=== PATIENT | female | born 1965 | race Caucasian/White ===

== ENCOUNTER → 2022-09-15 07:56 | Outpatient (CLI) | payer OTHER, SELFPAY ==
--- NOTE | ~2022-09-15 | MR_ITS ---
MRI of the brain Clinical History: Demyelinating disease Technique: Axial and sagittal T1-weighted images were acquired. These were followed by axial T2-weigh irvin, diffusion weighted, gradient, and FLAIR images. Sagittal FLAIR images were also performed. Follo wing intravenous administration of 15 cc MultiHance gadolinium, T1-weighted fat-sat imaging was perfo rmed in the axial, coronal, and sagittal planes. Findings: There is no acute infarct, intracranial hemorrhage, or mass lesion. There are multiple smal l FLAIR hyperintense white matter lesions in the periventricular white matter bilaterally. Ventricles and subarachnoid spaces are unremarkable. Orbits are unremarkable. Paranasal sinuses and m astoid air cells are clear. Major intracranial flow voids are intact. Sagittal midline structures are intact. No abnormal postcontrast enhancement identified. IMPRESSION: Multiple small FLAIR hyperintense white matter lesions, as noted above. Appearance is probably most s uggestive of chronic microvascular ischemic change. Demyelinating disease difficult to completely exc lude based on imaging alone. Clinical correlation required. Reviewed, dictated and finalized at location [facility]. IMPRESSION: Multiple small FLAIR hyperintense white matter lesions, as noted above. Appeara nce is probably most suggestive of chronic microvascular ischemic change. Demye linating disease difficult to completely exclude based on imaging alone. Clinic al correlation required.
== END ==
PROVIDERS: PCP Internal Medicine; Visit Provider Internal Medicine
DX: G37.9 Demyelinating disease of central nervous system, unspecified (principal); G93.9 Disorder of brain, unspecified
CPT/HCPCS: 70553; A9577

== ENCOUNTER → 2022-09-22 09:07 | Outpatient (CLI) | payer OTHER, SELFPAY ==
--- NOTE | ~2022-09-22 | MR_ITS ---
MRI of the cervical spine Clinical History: Demyelinating disease, pain Technique: Axial T2-weighted and gradient images, and sagittal T1-weighted, T2-weighted, and STIR jacklyn ges were acquired. Following intravenous administration of 15 cc MultiHance gadolinium, T1-weighted f at-sat imaging was performed in the axial and sagittal planes. Findings: There is no fracture or subluxation of the cervical spine. Vertebral bodies maintain normal height and alignment. No suspicious bone marrow signal abnormality identified. At C2-C3, and C3-C4, there is no disc bulge or herniation. No spinal canal stenosis, cord compression , or neural foraminal narrowing at these levels. At C4-C5, there is no disc bulge or herniation. There is mild right facet arthropathy. No spinal darnell l stenosis, cord compression, or definite neural foraminal narrowing. At C5-C6, there is moderate degenerative disc narrowing and facet arthropathy. There is bilateral nadine ral foraminal narrowing, right worse than left. No mikhail spinal canal stenosis or cord compression. At C6-C7, there is degenerative disc narrowing with minimal disc osteophyte complex. There is probabl e bilateral neural foraminal narrowing, right worse than left. No spinal canal stenosis or cord compr ession. No abnormal signal seen in the spinal cord. No epidural mass or collection seen. Paravertebral soft tissues are unremarkable. No abnormal postcontrast enhancement identified. Impression: Mild degenerative spondylosis at C5-C6 and C6-C7, as detailed above. Reviewed, dictated and finalized at [facility] [place]. Impression: Mild degenerative spondylosis at C5-C6 and C6-C7, as detailed above.
== END ==
PROVIDERS: PCP Internal Medicine; Visit Provider Internal Medicine
DX: M47.812 Spondylosis without myelopathy or radiculopathy, cervical region (principal); G37.9 Demyelinating disease of central nervous system, unspecified
CPT/HCPCS: 72156